=== PATIENT | female | born 1960 | race Caucasian/White ===

== ENCOUNTER 2019-02-23 21:25 | Emergency (ER) | payer MEDICARE ==
[~2019-02-23] VITALS: Ht 165.1 cm; Wt 130.0 kg
[2019-02-23 21:28] VITALS: TEMP 99.3
[2019-02-23] MEDS ORDERED: NORCO 325 MG-51 TAB PO (21:54)
[2019-02-23] MEDS ORDERED: CLEOCIN HCL300 MG PO (21:54)
[2019-02-23 22:48] VITALS: BP 137/82; PULSE 107
== END 2019-02-23 22:48 | disposition home or self-care (01) ==
LOC: COL.ER 21:25
DX: K04.7 Periapical abscess without sinus (principal); E11.9 Type 2 diabetes mellitus without complications; Z79.4 Long term (current) use of insulin

== ENCOUNTER 2019-03-19 21:24 | Emergency (ER) | payer MEDICARE ==
[~2019-03-19] VITALS: Ht 165.1 cm; Wt 136.8 kg
[~2019-03-19 21:24] MED LIST: CLEOCIN HCL300 MG PO; NORCO 325 MG-51 TAB PO
[2019-03-19 21:32] VITALS: BP 138/80; TEMP 99
[2019-03-19 22:25] VITALS: PULSE 91
== END 2019-03-19 22:25 | disposition home or self-care (01) ==
LOC: COL.ER 21:24
DX: T63.461A Toxic effect of venom of wasps, accidental (unintentional), initial encounter (principal); E11.9 Type 2 diabetes mellitus without complications
CPT/HCPCS: J1885

== ENCOUNTER 2021-02-12 17:34 | Emergency (ER) | payer OTHER, MEDICARE ==
[~2021-02-12] VITALS: Ht 165.1 cm; Wt 145.5 kg
[2021-02-12 19:05] VITALS: BP 156/78; PULSE 102; TEMP 97.8
== END 2021-02-12 19:05 | disposition home or self-care (01) ==
LOC: COL.ER 17:34
DX: S20.212A Contusion of left front wall of thorax, initial encounter (principal); G35 Multiple sclerosis; E66.9 Obesity, unspecified; I10 Essential (primary) hypertension; E11.9 Type 2 diabetes mellitus without complications; Z87.891 Personal history of nicotine dependence; V43.62XA Car passenger injured in collision with other type car in traffic accident, initial encounter

== ENCOUNTER 2024-01-18 14:34 | Emergency (ER) | payer MEDICARE ==
[~2024-01-18] VITALS: Ht 162.6 cm; Wt 129.1 kg
[2024-01-18 14:36] VITALS: TEMP 98.5
[2024-01-18] MEDS ORDERED: Ondansetron 4 MG/2 ML VIAL IV ONE (15:00)
[2024-01-18] MEDS ORDERED: Lidocaine PF 2% (20 MG/ML) 5 ML VIAL IH ONE (15:00)
[2024-01-18 16:20] VITALS: BP 163/86; PULSE 100
== END 2024-01-18 16:23 | disposition home or self-care (01) ==
LOC: COL.ER 14:34
DX: J39.9 Disease of upper respiratory tract, unspecified (principal); I10 Essential (primary) hypertension; R00.0 Tachycardia, unspecified
CPT/HCPCS: J2405